=== PATIENT | female | born 1995 | race Asian ===

== ENCOUNTER 2017-04-08 15:37 | Emergency (ER) | payer OTHER ==
[~2017-04-08] VITALS: Ht 152.4 cm; Wt 53.1 kg
[2017-04-08 18:10] VITALS: BP 113/71
== END 2017-04-08 19:08 | disposition home or self-care (01) ==
LOC: EMS 15:39
DX: O03.4 Incomplete spontaneous abortion without complication (principal)
CPT/HCPCS: 99283